=== PATIENT | male | born 1995 | race Caucasian/White ===

== ENCOUNTER 2019-10-24 21:41 | Observation (INO) ==
[2019-10-24] MEDS ORDERED: MORPHINE IV PRN (23:07)
[2019-10-24] MEDS ORDERED: ZOFRAN IV PRN (23:07)
[2019-10-25] MEDS: NS 1,000 ML IV SCH ×3 (00:12→15:10)
[2019-10-25] MEDS: ZOSYN 3.375 GM in NS 50 ML IV SCH ×5 (00:12→21:21)
--- NOTE | 2019-10-25 07:06 | HISTORY AND PHYSICAL ---
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 He did not start having any abdominal pain until about 3 p.m. The pain worsened so he sought medical attention at the [facility] Emergency Department. CT scan proved him to have acute appendicitis. The pain this morning seems to be localized in his right lower quadrant. PAST MEDICAL HISTORY: Unremarkable. MEDICATIONS: He takes no scheduled medications. ALLERGIES: Has no known drug allergies. PAST SURGICAL HISTORY: He has never had surgery. SOCIAL HISTORY: He is employed. He is not . Denies smoking, illicit drug use. FAMILY HISTORY: Noncontributory. REVIEW OF SYSTEMS: Negative in all 14 subsystems except as noted above. PHYSICAL EXAM: Temp 98.5 degrees, heart rate 76, blood pressure 149/78. No cervical adenopathy. Bilateral breath sounds. HEART: Regular rate and rhythm. ABDOMEN: He is tender in the right lower quadrant. No peripheral edema. GENERAL: He is awake and alert. LABORATORY DATA: His white count was elevated at [facility]. His white count there was recorded at 19,400. ASSESSMENT: Acute appendicitis. PLAN: Laparoscopic appendectomy. I have discussed the procedure, the possible need to convert him to open. He understands and agrees to proceed. His mother is in attendance. cc: Shorty Page MD
[2019-10-25] MEDS ORDERED: FENTANYL ONE ×2 (08:12→09:15)
[2019-10-25] MEDS ORDERED: DIPRIVAN 1% ONE (08:13)
[2019-10-25] MEDS ORDERED: LR 1,000 ML ONE (08:40)
[2019-10-25] MEDS ORDERED: SENSORCAINE-MPF 0.5%/EPI 1:200,000 ONE (08:40)
[2019-10-25] MEDS ORDERED: QUELICIN (DOSE) ONE (09:12)
[2019-10-25] MEDS ORDERED: VERSED ONE (09:19)
[2019-10-25] MEDS ORDERED: ROBINUL ONE (09:54)
[2019-10-25] MEDS ORDERED: NEOSTIGMINE ONE (09:55)
[2019-10-25] MEDS: DILAUDID ONE ×2 (10:37→10:43)
--- NOTE | 2019-10-25 10:37 | OPERATIVE NOTE ---
PROCEDURE DATE: 10/25/2019 PREOPERATIVE DIAGNOSIS: Acute appendicitis. POSTOPERATIVE DIAGNOSIS: Acute appendicitis. PROCEDURE PERFORMED: Laparoscopic appendectomy. DESCRIPTION OF PROCEDURE: Satisfactory general endotracheal anesthesia was achieved. The abdomen was prepped and draped in a sterile fashion. We anesthetized the skin below the umbilicus, incised the skin, attempted the Optiview technique with a 5 trocar, but only could get into the preperitoneal space, so we had to change to the right lower quadrant, and then enter the abdominal cavity through the right lower quadrant Optiview technique. We then insufflated through this. I had to resort to an epigastric additional 5 trocar site, which we placed, and then placed a 12 trocar in the lower hypogastrium. We placed the patient in Trendelenburg, and turned him to the left. We identified the inflamed appendix. We grasped the mesoappendix with a padded grasper, lifted it up, and used the LigaSure through the mesoappendix to the base of the appendix. We introduced the Endo-JACK patterson cartridge 30 mm long, stapled and divided the base of the appendix. We then placed the appendix within the Pleatman pouch, and delivered it out of the abdominal cavity through the lower hypogastric trocar site. We looked back. Hemostasis was satisfactory. No other abnormalities were identified. We then used a Vince-Adry wound closure for the lower hypogastric trocar site. We then desufflated and removed our other trocars. We added an additional 2-0 Polysorb fascial stitch at the lower hypogastric trocar site. We then closed the skin at each incision with 4-0 Polysorb subcuticular stitches. Sterile OpSites were applied. He tolerated it well, and was sent to the recovery room in satisfactory condition. cc: Shorty Page MD
[2019-10-25] MEDS ORDERED: ZOFRAN ONE (11:00)
[2019-10-25] MEDS ORDERED: DECADRON ONE (11:00)
[2019-10-25] MEDS ORDERED: OFIRMEV 1000 MG/ISOTONIC SOLN 1,000 MG/100 ML BOTTLE ONE (11:00)
[2019-10-25] MEDS ORDERED: ZEMURON ONE (11:01)
[2019-10-25] MEDS ORDERED: PERIDEX MT SCH (21:00)
[2019-10-25] MEDS: NORCO-10 PO PRN (22:45)
[2019-10-26] MEDS: ZOSYN 3.375 GM in NS 50 ML IV SCH ×2 (04:23→04:46)
[2019-10-26] MEDS ORDERED: DURAMORPH ONE (07:45)
[2019-10-26] MEDS ORDERED: FENTANYL ONE (07:45)
[2019-10-26] MEDS: NORCO-10 PO PRN (07:54)
[2019-10-26 08:41] VITALS: BP 131/72
--- NOTE | 2019-10-26 10:51 | GENERAL SURGERY PROGRESS NOTE ---
DATE: 10/26/2019 Rio is doing generally well. He is taking liquids okay. He feels okay. He is taking pain medicine and it relieves his discomfort adequately. He has urinated satisfactorily. The plan is to discharge him today. We discussed wound care, activity and diet. He will return to see me in the office in a week. cc: Shorty Page MD
== END 2019-10-26 11:25 | disposition home or self-care (01) ==
LOC: 4N 21:41 → INTOOBSV 21:41
PROVIDERS: ADMIT Surgery; ATTEND Surgery